=== PATIENT | female | born 1965 | race Caucasian/White ===

== ENCOUNTER → 2016-12-02 | Outpatient (CLI) | payer BC ==
--- NOTE | 2016-12-02 15:43 | BD ---
EXAMINATION TYPE: MG DEXA axial skeleton. DATE OF EXAM: 12/02/2016 COMPARISON: NONE CLINICAL HISTORY: 51-year-old female with known osteopenia Height: 64.5 IN Weight: 120 LBS FRAX RISK QUESTIONS: Alcohol (3 or more units per day): NO Family History (Parent hip fracture): YES MOTHER Glucocorticoids (More than 3mos): NO (Ex: prednisone, prednisolone, methylprednisolone, dexamethasone, and hydrocortisone). History of Fracture in Adulthood: NO Secondary Osteoporosis: 1. Type 1 Diabetes: NO 2. Hyperthyroidism: NO 3. Menopause before 45: AGE 49 4. Malnutrition: NO 5. Chronic liver disease: NO Rheumatoid Arthritis: NO Current Tobacco Use: NO RISK FACTORS HISTORY OF: Active: YES Diet low in dairy products/other sources of calcium: YES Postmenopausal woman: AGE 49 MEDICATIONS: OSTEOPOROSIS MEDS: NOT NOW PT TOOK FOSAMAX FOR 3 MONTHS IN 2013 Additional Medications: CALCIUM, VIT D, ZOFRAN, BACLOFEN, CITALOPRAM HYDROBROMIDE, CLOBETASOL, DELZIC OL, FERROUS SULFATE, HYDROCODONE, LOMOTIL, NAPROXEN, PRILOSEC, VALTREX, WELLBUTRIN, XANAX, ZOCOR EXAM MEASUREMENTS: Bone mineral densitometry was performed using the [employer] System. Bone mineral density as measured about the Lumbar spine is: ----- L1-L4(G/cm2): 0.817 T Score Values are as follows: ----- L2: -2.9 ----- L3: -3.2 ----- L4: -3.5 ----- L1-L4: -3.0 Bone mineral density has: Decreased -18.3% since study of: 09/29/2013 Bone mineral density about the R hip (g/cm2): 0.712 Bone mineral density about the L hip (g/cm2): 0.743 T Score values are as follows: -----R Neck: -2.3 -----L Neck: -2.1 -----R Total: -2.5 -----L Total: -2.3 Bone mineral density has: Decreased -11.1% since study of: 09/29/2013 IMPRESSION: Osteoporosis as indicated by T score values in the lumbar spine and right hip. There is increased fracture risk and therapy is usually indicated based on age. Re-Screen 1-2 years. NOTE: T-SCORE=SD OF THE YOUNG ADULT MEAN.
== END | disposition home or self-care (01) ==
LOC: RADBDWWP 07:53
PROVIDERS: ATTEND Family Medicine
DX: M81.0 Age-related osteoporosis without current pathological fracture (principal)
CPT/HCPCS: 77080

== ENCOUNTER → 2017-01-22 | Day surgery (SDC) | payer BC ==
[~2017-01-22] MED LIST: GLUCAGON 1 MG/ML VIAL IM STA
[2017-01-22 10:13] VITALS: BP 96/54; PULSE 71; RESP 14; TEMP 97.9
--- NOTE | 2017-01-22 14:22 | MR ---
EXAMINATION TYPE: MR Enterography DATE OF EXAM: 01/22/2017 COMPARISON: MR enterography December 30, 2015. CT abdomen and pelvis June 18, 2013. HISTORY: Crohn's disease, unspecified,wo complication CONTRAST: Standard multiplanar, multisequence imaging of the abdomen is performed without and with IV contrast, patient is injected with 5 mL intravenous Gadavist gadolinium contrast. Oral Volumen was given as pe r enterography protocol. FINDINGS: BOWEL: Exam is noted suboptimal as patient had poor tolerance of enteric Volumen. There is satisfacto ry dilatation of stomach without suspicious wall thickening. Slightly suboptimal distention of duoden al sweep without suspicious wall thickening. There is fairly satisfactory dilatation of small bowel l oops in the mid to lower abdomen. Evaluation of the colon is suboptimal as the Volumen does not reach past terminal ileum. Terminal ile um is felt within normal limits in the right lower quadrant. There is new suspicious short segment irregular narrowing with mild asymmetrically prominent mucosal enhancement involving small bowel loop in the superior pelvis just right of midline superior to bladd er seen best on series 701 images 115 through 133. Suspect active inflammation on background of chron ic narrowing or fibrosis. This loop of distal small bowel is less well seen on T2-weighted images. Thrasher rgical changes in distal colon are better seen on CT versus this MRI exam. Previously visualized sten otic area is likely stable seen best coronal series 201 image 6 without suspicious enhancement . OTHER: A few simple appearing slightly lobulated cysts are redemonstrated scattered throughout the li marco. Gallbladder is not uniform T2 hyperintense suggesting stones or gallbladder sludge. The spleen, pancreas, and both adrenal glands are normal in size and appear grossly unremarkable. There is no con cerning new renal mass or hydronephrosis seen bilaterally. There is redemonstration of subcentimeter nonenhancing T2 hyperintense lesion is felt to reflect simple cysts bilaterally. Uterus is anteverted in shape and not suspiciously enlarged. There is suspected 1.3 cm subserosal fib roid right aspect of uterus redemonstrated. Small nabothian cysts in the cervix are again seen. Bladd er is felt within normal limits. There is no concerning abdominal or pelvic fluid collection. There i s no suspicious abdominal or pelvic adenopathy. Visualized osseous structures are intact. IMPRESSION: Redemonstration of short segment area of narrowing possible stricture in the distal ileum not causing significant obstruction. There is new small segment suspicious area in the distal ileum worrisome fo r mild acute inflammation with background chronic stricture versus spasm felt present. Suspect new fo kayli area of active Crohn's disease.
== END ==
LOC: RADMRIMAIN 09:40
PROVIDERS: ATTEND Internal Medicine Gastroenterology
DX: K50.90 Crohn's disease, unspecified, without complications (principal)
CPT/HCPCS: 96372; 72197; 74183; J1610; A9581

== ENCOUNTER → 2018-05-02 | Outpatient (CLI) | payer MEDICARE ==
--- NOTE | 2018-05-02 16:54 | BD ---
EXAMINATION TYPE: Axial Bone Density DATE OF EXAM: 05/02/2018 COMPARISON: 2017 CLINICAL HISTORY: osteoporosis Height: 5'5 Weight: 121 FRAX RISK QUESTIONS: Family History (Parent hip fracture): y Glucocorticoids (More than 3mos): y (Ex: prednisone, prednisolone, methylprednisolone, dexamethasone, and hydrocortisone). History of Fracture in Adulthood: y Secondary Osteoporosis: 4. Malnutrition: y RISK FACTORS HISTORY OF: Postmenopausal woman: y MEDICATIONS: Osteoporosis Medications: Which medication: Actonel How Lon year Additional Medications: chrons disease, pain Additional History: EXAM MEASUREMENTS: Bone mineral densitometry was performed using the [employer] System. Bone mineral density as measured about the Lumbar spine is: ----- L1-L4(G/cm2): 0.741 T Score Values are as follows: ----- L2: -3.6 ----- L3:-3.8 ----- L4: -4.0 ----- L1-L4: -3.7 Bone mineral density has: Decreased -8.4% since study of: 12/02/2016 Bone mineral density about the R hip (g/cm2): 0.655 Bone mineral density about the L hip (g/cm2): 0.674 T Score values are as follows: -----R Neck: -2.8 -----L Neck: -2.6 -----R Total: -2.8 -----L Total: -2.6 Bone mineral density has: Decreased -4.5% since study of: 12/02/2016 IMPRESSION: Osteoporosis (T Score less than -2.5). There is increased fracture risk and therapy is usually indicated based on age. Re-Screen 1-2 years. NOTE: T-SCORE=SD OF THE YOUNG ADULT MEAN.
== END ==
LOC: RADBDWWP 10:36
PROVIDERS: ATTEND Family Medicine
DX: M81.0 Age-related osteoporosis without current pathological fracture (principal); Z78.0 Asymptomatic menopausal state
CPT/HCPCS: 77080

== ENCOUNTER → 2018-10-07 | Day surgery (SDC) | payer MEDICARE ==
[2018-10-07 08:49] VITALS: BP 103/52; PULSE 76; RESP 16; TEMP 97.8
--- NOTE | 2018-10-11 15:33 | MR ---
EXAMINATION TYPE: MR Enterography DATE OF EXAM: 10/07/2018 COMPARISON: MRV dated 01/22/2017 and 12/30/2015 HISTORY: Crohn's disease CONTRAST: Standard multiplanar, multisequence imaging of the abdomen is performed without and with IV contrast, patient is injected with 5.5 mL intravenous Gadavist gadolinium contrast. Oral Volumen and Water was given as per enterography protocol. FINDINGS: There is gastrectasis as the stomach is distended with the lumen. The small bowel and large bowel are of normal caliber without dilatation. T1 hyperintense moderate to large volume colonic fecal stasis is appreciated. Bone marrow signal appears within normal limits. The spleen measures 11.6 cm in longitudinal dimensio n, within normal limits. The visualized portions of the liver demonstrate a multiloculated T2 hyperin tense nonenhancing left hepatic lesion representing a cyst with very thin internal septations measuri ng up to 1.7 cm. Additional probable cyst is seen within the right hepatic lobe on image 38 of the T2 axial nonfat sat sequence without enhancement on postcontrast T1. On the coronal postcontrast T1 david ges additional smaller probable left hepatic lobe cyst is seen that is not imaged on the axial sequen cameron. The kidneys are unremarkable without hydronephrosis. Pancreas and adrenal glands are also unrema rkable. Abdominal aorta is of normal course and caliber. On the exam of 12/30/2015 a 3.5 cm length persistent narrowing involving the short segment of distal il eum was seen representing either a prominent peristaltic contraction or chronic Crohn's stricture. Th is persists and therefore represents Crohn's stricture rather than peristalsis. The previously seen r ight lower quadrant mesenteric adenopathy measuring up to 1.0 cm. Has decreased in the interim with l ymph nodes measuring only 4 mm in short axis. However central root of the mesentery lymph nodes measu re up to 7 mm in short axis. On the exam of 01/22/2017 there was a short segment of distal ileum worrisome for mild acute on chronic inflammation and stricture formation. Ascites is not well appreciated however a new site of strictur ing with minimal surrounding enhancement is seen within the central mid ileum marked on axial image 1 23 and coronal image 89 measuring a length of 1.4 cm. The terminal ileum appears very mildly hyperemi c without perienteric inflammatory fat stranding or bowel wall thickening. IMPRESSION: 1. New short segment central abdominal mid ileal narrowing suggesting nonobstructive mild stricture m easuring 1.4 cm in length with very minimal enhancement related to acute inflammatory enteritis. 2. Persistent right lower quadrant distal ileal elongated nonobstructing stricture. 3. Very mild hyperemia of the terminal ileum without other evidence of active inflammatory change to suggest acute terminal ileitis. 4. No pericolonic or perienteric abscess, abnormal adenopathy, submucosal deposition of fat or creepi ng mesenteric fat to relate to chronic colitis, nor obstructive stricture.
== END ==
LOC: RADMRIMAIN 08:04
PROVIDERS: ATTEND General Practice
DX: K50.012 Crohn's disease of small intestine with intestinal obstruction (principal)
CPT/HCPCS: 96372; 72197; 74183; J1610; A9585

== ENCOUNTER 2020-04-11 10:43 | Emergency (ER) | payer MEDICARE ==
[2020-04-11 10:59] VITALS: TEMP 97.3
[2020-04-11] MEDS ORDERED: FAMOTIDINE 20 MG/2 ML VIAL IV STA (11:27)
[2020-04-11] MEDS ORDERED: methylPREDNISolone SOD SUCCI 125 MG/2 ML VIAL IV STA (11:27)
[2020-04-11] MEDS ORDERED: SODIUM CHLORIDE 0.9% 1,000 ML IV ONE (11:27)
[2020-04-11 11:45] LABS: HCT 34.5 % (34.0-46.0); Hypochromasia Slight; MCH 25.8 pg (25.0-35.0); MCHC 31.9 g/dL (31.0-37.0); Mean Platelet Volume 9.6; Platelet Count 178 k/uL (150-450); RBC 4.26 m/uL (3.80-5.40); RDW 13.6 % (11.5-15.5); WBC 2.4 k/uL (3.8-10.6)
--- NOTE | 2020-04-11 11:51 | ED ---
Arrhythmia/Palpitations HPI - General Chief Complaint: Arrhythmia/Palpitations Stated Complaint: Allergic Reaction Time Seen by Provider: 04/11/20 10:45 Source: patient, EMS Mode of arrival: EMS Limitations: no limitations - History of Present Illness Initial Comments: 55-year-old female past medical history of Crohn's presents emergency department from her infusion center. She states that she was getting her fourth infusion of remicade when she had sudden onset of shortness of breath, diaphoresis, lip and tongue swelling. Patient's was found to be hypotensive and bradycardic by staff. EMS was called and provided her with 50 mg of Benadryl. Patient did have subsequent improvement in her blood pressures. Denies previous history of previous ALLERGIC reaction. States she had no issues with her previous infusions. She is scheduled for a colostomy on Wednesday with Dr. Aguilera. She admits that she feels as if she passed out during this episode. No vomiting. Denies any chest pain. No other alleviating, precipitating or modifying factors - Related Data Home Medications Medication Instructions Recorded Confirmed Ergocalciferol [Vitamin D2] 50,000 unit PO Q14D 12/30/15 04/11/20 ALPRAZolam [Xanax] 1 mg PO BID PRN 04/11/20 04/11/20 Acetaminophen Tab [Tylenol Tab] 1,000 mg PO Q6HR PRN 04/11/20 04/11/20 Alendronate Sodium 70 mg PO MARQUEZ 04/11/20 04/11/20 HYDROcodone/APAP 10-325MG [Roper 1 tab PO Q6HR PRN 04/11/20 04/11/20 10-325] PARoxetine [Paxil] 20 mg PO DAILY 04/11/20 04/11/20 Pravastatin Sodium [Pravachol] 10 mg PO DAILY 04/11/20 04/11/20 Vitamin B Complex 1 cap PO DAILY 04/11/20 04/11/20 valACYclovir HCL [Valtrex] 1,000 mg PO DAILY 04/11/20 04/11/20 Previous Rx's Medication Instructions Recorded EPINEPHrine (Auto Inject) [Epipen] 0.3 mg IM ONCE PRN #2 pen 04/11/20 Famotidine [Pepcid] 20 mg PO BID #6 tablet 04/11/20 diphenhydrAMINE [Benadryl] 25 mg PO TID PRN #9 capsule 04/11/20 predniSONE [Deltasone] 20 mg PO BID #6 tab 04/11/20 Allergies Allergy/AdvReac Type Severity Reaction Status Date / Time dicyclomine HCl [From Bentyl] Allergy Rash/Hives Verified 04/11/20 11:28 Review of Systems ROS Statement: Those systems with pertinent positive or pertinent negative responses have been documented in the HPI. ROS Other: All systems not noted in ROS Statement are negative. Past Medical History Past Psychological History: No Psychological Hx Reported General Exam Limitations: no limitations General appearance: alert, in no apparent distress Head exam: Present: atraumatic, normocephalic, normal inspection Eye exam: Present: normal appearance, PERRL, EOMI. Absent: scleral icterus, conjunctival injection, periorbital swelling ENT exam: Present: normal exam, mucous membranes moist Neck exam: Present: normal inspection. Absent: tenderness, meningismus, lymphadenopathy Respiratory exam: Present: normal lung sounds bilaterally. Absent: respiratory distress, wheezes, rales, rhonchi, stridor Cardiovascular Exam: Present: regular rate, normal rhythm, normal heart sounds. Absent: systolic murmur, diastolic murmur, rubs, gallop, clicks GI/Abdominal exam: Present: soft, normal bowel sounds. Absent: distended, tenderness, guarding, rebound, rigid Extremities exam: Present: normal inspection, full ROM, normal capillary refill. Absent: tenderness, pedal edema, joint swelling, calf tenderness Back exam: Present: normal inspection Neurological exam: Present: alert, oriented X3, CN II-XII intact Psychiatric exam: Present: normal affect, normal mood Skin exam: Present: warm, dry, intact, normal color. Absent: rash Course Vital Signs 04/11/20 04/11/20 04/11/20 10:44 10:56 11:52 Temperature 97.3 F L Pulse Rate 77 73 Respiratory 14 17 Rate Blood Pressure 107/52 121/63 O2 Sat by Pulse 96 100 Oximetry 04/11/20 13:01 Temperature Pulse Rate 73 Respiratory 18 Rate Blood Pressure 101/57 O2 Sat by Pulse 98 Oximetry EKG Findings - EKG Comments: EKG Findings:: EKG demonstrates normal sinus rhythm with a ventricular rate of 80. VA 186. QRS 100. QTC of 505. No acute ST segment elevations or depressions concerning for ischemic changes Medical Decision Making - Medical Decision Making Upon arrival patient is placed in the trauma bay 2. A thorough history and physical exam was performed. Patient does have improvement in her blood pressure and heart rate. She was given Pepcid and Solu-Medrol. Lab studies were conducted. 12-lead EKG was performed. Patient was observed for 2 hours. Discussed the case with Dr. Aguilera. She will see her on Wednesday. She will be placed on Benadryl, Pepcid and Cipro Medrol for 3 days. States it's okay for her to take his medications on Wednesday before her procedure. She is aware of the reaction. Patient must return if she has any new or worsening symptoms. Prescriptions were sent to the pharmacy. Patient discharged home in stable condition - Lab Data Result diagrams: 04/11/20 11:28 04/11/20 11: Lab Results 04/11/20 04/11/20 04/11/20 Range/Units 11:28 11:28 11:28 WBC 2.4 L (3.8-10.6) k/uL RBC 4.26 (3.80-5.40) m/uL Hgb 11.0 L (11.4-16.0) gm/dL Hct 34.5 (34.0-46.0) % MCV 81.0 (80.0-100.0) fL MCH 25.8 (25.0-35.0) pg MCHC 31.9 (31.0-37.0) g/dL RDW 13.6 (11.5-15.5) % Plt Count 178 (150-450) k/uL MPV 9.6 Neutrophils % (Manual) 34 % Lymphocytes % (Manual) 61 % Monocytes % (Manual) 3 % Eosinophils % (Manual) 2 % Neutrophils # (Manual) 0.82 L (1.3-7.7) k/uL Lymphocytes # (Manual) 1.46 (1.0-4.8) k/uL Monocytes # (Manual) 0.07 (0-1.0) k/uL Eosinophils # (Manual) 0.05 (0-0.7) k/uL Nucleated RBCs 0 (0-0) /100 WBC Manual Slide Review Performed Reactive Lymphocytes Present Hypochromasia Slight Sodium 139 (137-145) mmol/L Potassium 3.7 (3.5-5.1) mmol/L Chloride 109 H (98-107) mmol/L Carbon Dioxide 27 (22-30) mmol/L Anion Gap 3 mmol/L BUN 13 (7-17) mg/dL Creatinine 0.53 (0.52-1.04) mg/dL Est GFR (CKD-EPI)AfAm >90 (>60 ml/min/1.73 sqM) Est GFR (CKD-EPI)NonAf >90 (>60 ml/min/1.73 sqM) Glucose 101 H (74-99) mg/dL Calcium 8.8 (8.4-10.2) mg/dL Total Bilirubin 0.3 (0.2-1.3) mg/dL AST 16 (14-36) U/L ALT 9 (4-34) U/L Alkaline Phosphatase 61 (38-126) U/L Troponin I <0.012 (0.000-0.034) ng/mL Total Protein 5.5 L (6.3-8.2) g/dL Albumin 3.2 L (3.5-5.0) g/dL Disposition Clinical Impression: Drug reaction, Crohn's colitis Disposition: HOME SELF-CARE Condition: Stable Instructions (If sedation given, give patient instructions): Anaphylaxis (ED) Additional Instructions: Please follow-up with your primary care doctor. Return to the emergency room for any new or worsening symptoms Prescriptions: diphenhydrAMINE [Benadryl] 25 mg PO TID PRN #9 capsule PRN Reason: Allergic Reaction predniSONE [Deltasone] 20 mg PO BID #6 tab EPINEPHrine (Auto Inject) [Epipen] 0.3 mg IM ONCE PRN #2 pen PRN Reason: Anaphylaxis Famotidine [Pepcid] 20 mg PO BID #6 tablet Is patient prescribed a controlled substance at d/c from ED?: No Referrals: Sandeep Colon MD [Primary Care Provider] - 1-2 days Emily Cleveland MD [STAFF PHYSICIAN] - 1-2 days Time of Disposition: 12:53
[2020-04-11 11:52] LABS: ALT 9 U/L (4-34); AST 16 U/L (14-36); African American GFR (CKD) >90 (>60 ml/min/1.73 sqM); Albumin 3.2 g/dL (3.5-5.0); Alkaline Phosphatase 61 U/L (38-126); Anion Gap 3 mmol/L; Blood Urea Nitrogen 13 mg/dL (7-17); Calcium 8.8 mg/dL (8.4-10.2); Carbon Dioxide 27 mmol/L (22-30); Chloride 109 mmol/L (98-107); Glucose 101 mg/dL (74-99); Non-African American GFR(CKD) >90 (>60 ml/min/1.73 sqM); Potassium 3.7 mmol/L (3.5-5.1); Sodium 139 mmol/L (137-145); Total Bilirubin 0.3 mg/dL (0.2-1.3); Total Protein 5.5 g/dL (6.3-8.2)
[2020-04-11 11:53] VITALS: PULSE 73
[2020-04-11 12:41] LABS: Eosinophils # (M) 0.05 k/uL (0-0.7); Lymphocytes # (M) 1.46 k/uL (1.0-4.8); Monocytes # (M) 0.07 k/uL (0-1.0); Neutrophils # (M) 0.82 k/uL (1.3-7.7); Neutrophils % (M) 34 %; Nucleated Red Blood Cells 0 /100 WBC (0-0); Total Cells Counted 100
[2020-04-11 12:43] LABS: Reactive Lymphocytes Present
[2020-04-11 13:03] VITALS: BP 101/57; RESP 18
== END 2020-04-11 13:14 | disposition home or self-care (01) ==
LOC: EC 10:43
DX: K50.10 Crohn's disease of large intestine without complications (principal); K52.9 Noninfective gastroenteritis and colitis, unspecified; T50.905A Adverse effect of unspecified drugs, medicaments and biological substances, initial encounter; Z79.899 Other long term (current) drug therapy; Z88.8 Allergy status to other drugs, medicaments and biological substances
CPT/HCPCS: 36415; 93005; 80053; 84484; 85025; 99285; 96374; 96375; 96361; J2930

== ENCOUNTER → 2023-07-07 | Day surgery (SDC) | payer BC, MEDICARE ==
[2023-07-07 09:07] VITALS: BP 90/59; PULSE 69; RESP 18; TEMP 98
[2023-07-07] MEDS: GLUCAGON 1 MG/ML VIAL IM STA (09:42)
--- NOTE | 2023-07-07 11:03 | MR ---
EXAMINATION TYPE: MR Enterography DATE OF EXAM: 07/07/2023 10:29 AM COMPARISON: 10/07/2018. CLINICAL INDICATION: Female 58 years old with a history of K50.90. Crohn's disease. TECHNIQUE: Standard multiplanar, multisequence imaging of the abdomen is performed without and with I V contrast, patient is injected with 1350 mL intravenous Gadavist gadolinium contrast. Oral NeuLumEX was given as per enterography protocol. FINDINGS: LOWER CHEST: No significant findings. ABDOMEN Bowel: Area within the mid abdomen seen on prior of ileal narrowing present appreciated. The small juan carlos wel distention is inadequate proximally. Terminal ileum appears without hyperemia or wall thickening . No definite evidence to suggest abnormal bowel wall thickening involving a small bowel or large bow el. No evidence of bowel obstruction. No evidence for mucosal hyperenhancement, stricture or fistulo us tract formation. Peritoneum: No evidence of pneumoperitoneum, free fluid, or adenopathy. Liver: T2 signal slightly complex hepatic cysts largest measuring up to 28 mm which may be mildly inc reased in size from prior where it was 17 mm in 2019. Gallbladder and Bile ducts: Unremarkable. Pancreas: Unremarkable. Spleen: Unremarkable. Adrenal glands: Unremarkable. Kidneys: Unremarkable. Bladder: Unremarkable. Reproductive: Fibroid changes to the uterus with low signal fibroid anteriorly. Lymph Nodes: Vasculature: Unremarkable. No aortic aneurysm. Musculoskeletal: The osseous structures appear intact. Abdominal wall: Unremarkable. IMPRESSION: Area of mild wall thickening within the mid abdomen seen on 2019 study is not appreciated on this exa m. No definitive evidence for active Crohn's disease.
== END ==
LOC: RADMRIMAIN 07:44
PROVIDERS: ATTEND Internal Medicine Gastroenterology
DX: K50.90 Crohn's disease, unspecified, without complications (principal)
CPT/HCPCS: 96372; 72197; 74183; J1610; A9585